=== PATIENT | female | born 1960 | race Two or more races ===

== ENCOUNTER → 2021-04-07 08:00 | Outpatient (CLI) | payer OTHER ==
[~2021-04-07] VITALS: Ht 157.5 cm; Wt 73.0 kg
[~2021-04-07 08:00] MED LIST: ARAVA10 MG PO; CRESTOR5 MG PO; GABAPENTIN100 M2 PO; LOTREL 5-10 MG1 CAP PO; MILLIPRED5 MG PO; OMEPRAZOLE MAGN20 MG PO
== END | disposition home or self-care (01) ==
LOC: LAB 08:00 → SURH 04-12 07:00 → EDSTATUS 04-12 11:15
PROVIDERS: ATTEND Student in an Organized Health Care Education/Training Program
DX: M48.061 Spinal stenosis, lumbar region without neurogenic claudication (principal); Z11.52 Encounter for screening for COVID-19; M51.16 Intervertebral disc disorders with radiculopathy, lumbar region